=== PATIENT | female | born 1940 | race Caucasian/White ===

== ENCOUNTER → 2016-12-18 | Outpatient (CLI) | payer OTHER | LOC: GIMAGING 15:18 | PROVIDERS: ATTEND Nurse Practitioner | DX: I51.7 Cardiomegaly (principal); Q67.6 Pectus excavatum; J40 Bronchitis, not specified as acute or chronic | CPT/HCPCS: 71020-PO ==

== ENCOUNTER 2016-12-20 18:59 | Inpatient (IN) | payer OTHER ==
--- NOTE | 2016-12-20 19:39 | CPEKG ---
Heart Rate: 81 RR Interval: 741 P-R Interval: 196 QRSD Interval: 90 QT Interval: 392 QTC Interval: 455 P [place]: 82 QRS [place]: 13 T Wave [place]: 59 EKG Severity - ABNORMAL ECG - EKG Impression: SINUS RHYTHM EKG Impression: BIATRIAL ABNORMALITIES EKG Impression: NONSPECIFIC REPOL ABNORMALITY, LATERAL LEADS Electronically Signed By: Nina Ayala 20-Dec-2016 20:47:30
--- NOTE | 2016-12-20 19:40 | EDPHY ---
H & P Time Seen by Provider: 12/20/16 19:24 HPI/ROS: CHIEF COMPLAINT: Cough, lightheaded. HISTORY OF PRESENT ILLNESS: This patient is a 76 year old female arriving with her family complaining off cough and lightheadedness onset five days ago. Onset of nasal congestion and cough 5 days ago while on a cruise. 2 days ago, she went to urgent care. Chest x -ray was reportedly negative for pneumonia. She was given a prescription for zithromax and has taken 3 doses. This morning felt okay but by the afternoon she developed increased cough, exhaustion, lack of appetite, and lightheadedness. Associated with shortness of breath at rest and with exertion. Unable to do her usual activities today because of SOB and fatigue. Her at bedside notes she seems to be breathing more rapidly than usual. She denies fever, chest pain, or other associated symptoms. REVIEW OF SYSTEMS: A 10 point review of systems was performed and is negative with the exception of the elements mentioned in the history of present illness. Past Medical/Surgical History: Cardiac amyloidosis, Hypertension, High cholesterol Social History: and daughter at bedside. Originally from [place]. . Smoking Status: Never smoked Physical Exam: General Appearance: Alert, pleasant, non-toxic appearing Eyes: Pupils equal and round, no conjunctival pallor or injection ENT, Mouth: Mucous membranes moist Neck: Normal inspection Respiratory: increased respiratory rate, diffuse expiratory rhonchi Cardiovascular: Regular rate and rhythm. 2/6 systolic murmur Gastrointestinal: Abdomen is soft and non-tender Neurological: A&O, nonfocal exam Skin: Warm and dry, no rash Extremities: Nontender, no pedal edema Psychiatric: Mood and affect normal Constitutional: Initial Vital Signs Temperature (C) 37.2 C 12/20/16 19:09 Heart Rate 95 12/20/16 19:09 Respiratory Rate 20 12/20/16 19:09 Blood Pressure 114/79 12/20/16 19:09 O2 Sat (%) 95 12/20/16 19:09 O2 Delivery Mode Room Air O2 (L/minute) 2 Allergies/Adverse Reactions: Corticosteroids (Glucocorticoids) Allergy (Verified 12/20/16 21:35) epinephrine Allergy (Verified 12/20/16 21:34) Penicillins Allergy (Verified 12/20/16 21:34) Home Medications: Medication Instructions Recorded Ascorbic Acid [Vitamin C 500 mg 500 mg PO DAILY 12/20/16 (*)] Herbals/Supplements -Info Only 1 ea PO DAILY 12/20/16 Metoprolol Tartrate [Lopressor 25 12.5 mg PO BID 12/20/16 mg (*)] Multivitamins [Multivitamin (*)] 1 each PO DAILY 12/20/16 [place]-3 Fatty Acids [Fish Oil 1000 1,000 mg PO DAILY 12/20/16 mg (*)] Simvastatin 10 mg PO HS 12/20/16 Spironolactone [Aldactone 25 MG 12.5 mg PO DAILY 12/20/16 (*)] levOFLOXACIN [levAQUIN (*)] 750 mg PO DAILY 5 Days 12/22/16 Medical Decision Making - Diagnostics EKG Interpretation: EKG interpreted by me reveals normal sinus rhythm, rate 81, no ST or T segment changes. Impression: normal EKG Imaging Results: Chest x-ray independently reviewed by me reveals a right middle lobe infiltrate. Imaging: I viewed and interpreted images myself ED Course/Re-evaluation: This patient presents with worsening cough and shortness of breath, after being diagnosed with acute bronchitis. She has had a 3 day course of Zithromax already. Oxygen saturation 89% on room air. Diffuse expiratory rhonchi on exam. Plan for DuoNeb, chest x-ray, labs. Chest x-ray shows right lower lobe pneumonia. She does not meet SIRS criteria. Blood cultures were drawn and Levaquin 750 mg IV given. Feels better after duoneb and O2 2 liters by NC. 20:31 consulted with hospitalist service. Dr. Zimmer accepts admission for pneumonia. Differential Diagnosis: Differential diagnosis includes though it is not limited to pneumonia, pneumothorax, pulmonary embolism, aortic dissection, pericarditis, acute coronary syndrome. - Data Points Laboratory Results: Laboratory Results 12/20/16 20:25 12/20/16 20:25 Medications Given: Discontinued Medications Albuterol/Ipratropium (Duoneb) 3 ml IH EDNOW ONE Stop: 12/20/16 19:50 Last Admin: 12/20/16 20:48 Dose: 3 ml Ascorbic Acid (Vitamin C) 500 mg PO DAILY [facility] Stop: 06/19/17 08:59 Last Admin: 12/22/16 08:32 Dose: 500 mg Enoxaparin Sodium (Lovenox) 40 mg SC DAILY [facility] Stop: 06/19/17 08:59 Last Admin: 12/22/16 08:20 Dose: 40 mg Guaifenesin (Mucinex) 1,200 mg PO BID [facility] Stop: 06/18/17 22:29 Last Admin: 12/22/16 08:32 Dose: 1,200 mg Levofloxacin/Dextrose (Levaquin 750 Mg (Premix)) 150 mls @ 100 mls/hr IV EDNOW ONE PRN Reason: Protocol Stop: 12/20/16 21:55 Last Admin: 12/20/16 20:47 Dose: 150 mls Levofloxacin/Dextrose (Levaquin 750 Mg (Premix)) 150 mls @ 100 mls/hr IV DAILY [facility] PRN Reason: Protocol Stop: 01/20/17 08:59 Last Admin: 12/22/16 09:38 Dose: 150 mls Levalbuterol (Xopenex 0.31mg Neb) 0.31 mg IH Q8HRS [facility] Stop: 06/19/17 05:59 Last Admin: 12/21/16 14:41 Dose: Not Given Levalbuterol (Xopenex 1.25mg Neb) 1.25 mg IH Q8HRS [facility] Stop: 06/19/17 14:29 Last Admin: 12/22/16 05:14 Dose: 1.25 mg Metoprolol Tartrate (Lopressor) 12.5 mg PO BID [facility] Stop: 06/19/17 08:59 Last Admin: 12/22/16 12:27 Dose: Not Given Multivitamins (Tab-A-Farshad) 1 each PO DAILY [facility] Stop: 06/19/17 08:59 Last Admin: 12/22/16 08:32 Dose: 1 each Prcns-7-Hgey Ethyl Esters (Fish Oil) 1,000 mg PO DAILY [facility] Stop: 06/19/17 08:59 Last Admin: 12/22/16 08:31 Dose: 1,000 mg Pravastatin Sodium (Pravachol) 20 mg PO HS [facility] Stop: 06/19/17 08:59 Last Admin: 12/21/16 11:55 Dose: Not Given Pravastatin Sodium (Pravachol) 20 mg PO HS [facility] Stop: 06/19/17 20:59 Last Admin: 12/21/16 20:08 Dose: 20 mg Spironolactone (Aldactone) 12.5 mg PO DAILY [facility] Stop: 06/19/17 08:59 Last Admin: 12/22/16 08:31 Dose: 12.5 mg Departure - Departure Disposition: [facility] Inpatient Acute Clinical Impression: Pneumonia Qualifiers: Pneumonia type: due to unspecified organism Laterality: right Lung location: lower lobe of lung Qualified Code(s): J18.1 - Lobar pneumonia, unspecified organism Condition: Fair Report Scribed for: Nina Ayala Report Scribed by: Alana Sales Date of Report: 12/20/16 Time of Report: 19:40 Physician Review and Approval Statement: 12/20/16 19:40 Portions of this note were transcribed by a medical records director. I personally performed a history, physical exam, medical decision making, and confirmed accuracy of information the transcribed note.
[2016-12-20] MEDS ORDERED: IPRATROPIUM/ALBUTEROL 3 ML DEYVIAL IH ONE (19:49)
[2016-12-20 20:49] LABS: % IMMATURE GRANULYOCYTES 0.3 % (0.0-1.1); ABSOLUTE IMMATURE GRANULOCYTES 0.03 10^3/uL (0.00-0.10); ADD DIFF? NO; ADD MORPH? NO; ADD SCAN? NO; ATYPICAL LYMPHOCYTE FLAG 20 (0-99); FRAGMENT RBC FLAG 0 (0-99); HEMATOCRIT 43.4 % (38.0-47.0); HEMOGLOBIN 15.4 g/dL (12.6-16.3); LEFT SHIFT FLG 0 (0-99); LIPEMIA HEMOLYSIS FLAG 90 (0-99); MEAN CELL HEMOGLOBIN 30.9 pg (27.9-34.1); MEAN CELL HEMOGLOBIN CONCENTR. 35.5 g/dL (32.4-36.7); MEAN CELL VOLUME 87.1 fL (81.5-99.8); MEAN PLATELET VOLUME 10.6 fL (8.7-11.7); PLATELET CLUMPS FLAG 0 (0-99); PLATELET COUNT 172 10^3/uL (150-400); RED BLOOD CELL COUNT 4.98 10^6/uL (4.18-5.33); RED CELL DISTRIBUTION WIDTH 11.9 % (11.5-15.2)
[2016-12-20 20:58] LABS: ANION GAP 10 mEq/L (8-16); CALCIUM 9.6 mg/dL (8.5-10.4); CARBON DIOXIDE 21 mEq/l (22-31); CHLORIDE 98 mEq/L (97-110); CREATININE 0.8 mg/dL (0.6-1.0); GLOMERULAR FILTRATION RATE > 60; GLUCOSE 142 mg/dL (70-100); POTASSIUM 4.3 mEq/L (3.5-5.2); SODIUM 129 mEq/L (134-144)
[2016-12-20] MEDS ORDERED: ONDANSETRON 4 MG/2 ML VIAL IVP PRN (22:25)
[2016-12-20] MEDS ORDERED: ONDANSETRON DISINTEGRATING 4 MG TAB PO PRN (22:25)
[2016-12-20] MEDS ORDERED: ACETAMINOPHEN 325 MG TAB PO PRN (22:25)
--- NOTE | 2016-12-20 22:59 | GHP ---
[f rep st] HISTORY AND PHYSICAL DATE OF ADMISSION: 12/20/2016 CHIEF COMPLAINT: Shortness of breath. HISTORY OF PRESENT ILLNESS: A 76-year-old female with a history of cardiac amyloidosis who presents with complaints of progressive cough and shortness of breath over the course of the last 72 hours. Of note, the patient was recently on an extended cruise. She returned [place] the [place] approximately a week ago, was seen at the [facility] for her yearly evaluation of her cardia c amyloidosis and then came to [place] to visit. Since she has been traveling to [place], has not ed a productive cough of discolored sputum and shortness of breath. She was evaluated in the emerge ncy department on December 18, provided a Z-Wali for which she took 3 doses and noted only progression on her symptoms, therefore re-presented to the emergency department today. In the ED she is feeling lightheaded, is endorsing subjective fevers and chills. Denies vision changes. Denies dysphagia. Reports shortness of breath. Reports cough that is productive of brown discolored sputum that was blood tinged this morning. Denies any diarrhea. Denies any changes in her bowel habits. Denies an y blood in her stools. Denies dysuria or hematuria. Denies lower extremity edema. Denies any numb ness, tingling or myalgias or arthralgias. PAST MEDICAL HISTORY: 1. Cardiac amyloidosis. 2. Obstructive sleep apnea. She uses CPAP at home. 3. Hyperlipidemia. 4. Hypertension. SOCIAL HISTORY: Negative for tobacco, alcohol or illicit drugs. FAMILY HISTORY: Negative for cardiac amyloidosis. ADVANCED DIRECTIVES: Patient is full cor, full tube. Her would be her medical decision neftali er. REVIEW OF SYSTEMS: A 10-point review of systems is negative with the exception of that reported in the HPI. PHYSICAL EXAMINATION: VITAL SIGNS: Blood pressure 152/86, heart rate 85, respiratory rate 20, 95% on 2 L, 38.7. GENERAL: This is a healthy-appearing female in no acute distress. HEENT: Notable f or moist mucous membranes. Eye exam is negative for any icterus. CARDIAC: Regular rate and rhythm . A systolic murmur is best auscultated at the left upper sternal border. PULMONARY: She has scat tered rhonchi as well as scattered wheezing in both lung rgeer, more predominant on the right than the left. GASTROINTESTINAL: Positive bowel sounds. ABDOMEN: Soft and nontender to palpation. MU SCULOSKELETAL: Negative for any lower extremity edema. SKIN: Exam is negative for any rashes. TEMO ROLOGIC: She is alert and oriented x3. PSYCHIATRIC: She is pleasant and cooperative on interview and examination. LABORATORY DATA: White count is 12, hematocrit 43.4, platelets of 172. Sodium 129. Lactic acid 1. 6, creatinine 0.8, blood glucose of 142, anion gap 10. Chest x-ray, which I personally reviewed and interpreted, shows an infiltrate in the right middle lobe, new from imaging on 12/18/2016. ASSESSMENT AND PLAN: This is a 76-year-old female presenting with shortness of breath and cough. 1. Sepsis. The patient is presenting with fever, leukocytosis, presumed source pulmonary. She has been recently traveling. Will empirically treat for community-acquired pneumonia. Send sputum cul tures. Blood cultures have been sent from the emergency department. We will check Legionella. Low er suspicion for a viral pathogen based on her time course and symptoms, will not send a respiratory viral panel at this time. She has received 3 doses of azithromycin, will switch azithromycin ceftr iaxone to levofloxacin single agent IV 750 daily and follow her blood cultures obtained in the emerg ency department. 2. Acute hypoxic respiratory failure secondary to community-acquired pneumonia. The patient is whe ezing on examination. Will add a long-acting beta agonist. Secondary to her cardiac amyloidosis as well as Mucinex in addition to the antibiotics outlined above. 3. Cardiac amyloidosis. Will continue patient's outpatient medications without alteration. 4. Hyponatremia, presumed hypovolemic in nature. The patient received normal saline resuscitation in the emergency department. We can recheck in the morning. 5. Hyperglycemia. This is not a known diagnosis for this patient. Will send a hemoglobin A1c to e valuate prophylaxis with Lovenox. DIET: Regular. DISPOSITION: I expect greater than 2 midnights as the patient has medical comorbidities presenting with sepsis and pneumonia. I discussed the case with the emergency room physician. Patient will be triaged to the medical-surgical floor for monitoring and care. /[id number]/MODL
[2016-12-20] MEDS: guaiFENesin 600 MG TAB.ER PO SCH (23:00)
[2016-12-21 05:11] LABS: % IMMATURE GRANULYOCYTES 0.3 % (0.0-1.1); ABSOLUTE IMMATURE GRANULOCYTES 0.03 10^3/uL (0.00-0.10); ADD DIFF? NO; ADD MORPH? NO; ADD SCAN? NO; ATYPICAL LYMPHOCYTE FLAG 30 (0-99); FRAGMENT RBC FLAG 0 (0-99); HEMATOCRIT 39.6 % (38.0-47.0); HEMOGLOBIN 14.2 g/dL (12.6-16.3); LEFT SHIFT FLG 10 (0-99); LIPEMIA HEMOLYSIS FLAG 90 (0-99); MEAN CELL HEMOGLOBIN 31.3 pg (27.9-34.1); MEAN CELL HEMOGLOBIN CONCENTR. 35.9 g/dL (32.4-36.7); MEAN CELL VOLUME 87.4 fL (81.5-99.8); PLATELET CLUMPS FLAG 20 (0-99); PLATELET COUNT 145 10^3/uL (150-400); RED BLOOD CELL COUNT 4.53 10^6/uL (4.18-5.33); RED CELL DISTRIBUTION WIDTH 11.8 % (11.5-15.2)
[2016-12-21] MEDS: LEVALBUTEROL 0.31 MG/3 ML DEYVIAL IH SCH ×2 (05:20→14:41)
[2016-12-21 06:06] LABS: ANION GAP 12 mEq/L (8-16); CALCIUM 9.2 mg/dL (8.5-10.4); CARBON DIOXIDE 20 mEq/l (22-31); CHLORIDE 97 mEq/L (97-110); CREATININE 0.8 mg/dL (0.6-1.0); GLOMERULAR FILTRATION RATE > 60; GLUCOSE 114 mg/dL (70-100); POTASSIUM 4.2 mEq/L (3.5-5.2); SODIUM 129 mEq/L (134-144)
[2016-12-21] MEDS ORDERED: Herbals/Supplements -Info Only PO SCH (09:00)
[2016-12-21] MEDS ORDERED: PRAVASTATIN SODIUM 20 MG TAB PO SCH ×2 (09:00→21:00)
[2016-12-21] MEDS: OMEGA-3 FATTY ACIDS 1,000 MG CAP PO SCH (09:59)
[2016-12-21] MEDS: ASCORBIC ACID 500 MG TAB PO SCH (09:59)
[2016-12-21] MEDS: guaiFENesin 600 MG TAB.ER PO SCH ×2 (09:59→20:11)
[2016-12-21] MEDS: METOPROLOL TARTRATE 25 MG TAB PO SCH ×2 (09:59→20:08)
[2016-12-21] MEDS: MULTIVITAMINS 1 EACH TAB PO SCH (09:59)
[2016-12-21] MEDS: ENOXAPARIN 40 MG/0.4 ML SYR SC SCH (10:04)
[2016-12-21] MEDS: SPIRONOLACTONE 25 MG TAB PO SCH (11:31)
--- NOTE | 2016-12-21 11:53 | HOSPPROG ---
Hospitalist Progress Note Assessment/Plan: 76 yo F with PMH of cardiac amyloidosis currently visiting from out of town pw cough/sob/fever found to be 2/2 CAP # CAP: on personal review of CXR noted to have new RML infiltrate on cxr. Started on levofloxacin with significant improvement overnight. Had respiratory viral PCR panel sent w/human metapneumovirus noted but suspect bacterial superinfection present as well given consolidation and overall clinical picture- -suspect atypical organisms. # sepsis: meeting SIRS criteria with fever, leukocytosis but no e/o end organ dysfunction and no HD instability # acute hypoxic respiratory failure: presenting with O2 of 89% on RA requiring 2L to maintain o2 sats >90%, have been able to wean to RA today # hyponatremia: has been persistent despite IVF overnight, baseline unknown and given hx of amyloid certainly at risk for SIADH. Will check urine na/urine osms and continue to trend. # cardiac amyloidosis: followed by the [facility], has been stable per her report # hyperglycemia: will check A1c # dispo: IP status, will need > 48 hours for eval/mgmt of above Patient new to my care. Old records reviewed and summarized as above. Subjective: no significant overnight events Objective: Vital Signs Temp Pulse Resp BP Pulse Ox 36.7 C 61 18 123/65 H 95 12/21/16 11:11 12/21/16 11:11 12/21/16 11:11 12/21/16 11:11 12/21/16 11:11 Microbiology 12/20/16 21:10 Respiratory Panel (PCR) - Final Nasal, Sinus - Swab Human Metapneumovirus Laboratory Results 12/21/16 04:38 12/21/16 04:38 12/20/16 12/21/16 12/22/16 05:59 05:59 05:59 Intake Total 250 Output Total 200 Balance 50 awake alert anicteric op clear rrr no mrg right sided rhonchi and scattered wheeze soft nt nd no cce warm dry well perfused oriented appropriate ICD10 Worksheet Patient Problems: Problems Problem Status Onset Pneumonia Acute
[2016-12-21 14:14] LABS: HEMOGLOBIN A1C 5.4 % (4.0-6.0)
[2016-12-21] MEDS ORDERED: LEVALBUTEROL 1.25 MG/3 ML DEYVIAL IH SCH (14:30)
[2016-12-21] MEDS: LEVALBUTEROL 1.25 MG/3 ML DEYVIAL IH SCH ×2 (14:49→21:34)
[2016-12-22] MEDS: LEVALBUTEROL 1.25 MG/3 ML DEYVIAL IH SCH (05:14)
[2016-12-22 05:24] LABS: ANION GAP 10 mEq/L (8-16); CALCIUM 9.2 mg/dL (8.5-10.4); CARBON DIOXIDE 21 mEq/l (22-31); CHLORIDE 97 mEq/L (97-110); CREATININE 0.9 mg/dL (0.6-1.0); GLOMERULAR FILTRATION RATE > 60; GLUCOSE 94 mg/dL (70-100); POTASSIUM 4.6 mEq/L (3.5-5.2); SODIUM 128 mEq/L (134-144)
[2016-12-22] MEDS: ENOXAPARIN 40 MG/0.4 ML SYR SC SCH (08:20)
[2016-12-22] MEDS: OMEGA-3 FATTY ACIDS 1,000 MG CAP PO SCH (08:31)
[2016-12-22] MEDS: SPIRONOLACTONE 25 MG TAB PO SCH (08:31)
[2016-12-22] MEDS: MULTIVITAMINS 1 EACH TAB PO SCH (08:32)
[2016-12-22] MEDS: ASCORBIC ACID 500 MG TAB PO SCH (08:32)
[2016-12-22] MEDS: guaiFENesin 600 MG TAB.ER PO SCH (08:32)
[2016-12-22 12:06] VITALS: BP 134/67; PULSE 80; RESP 16; TEMP 98.3; O2SAT 93
--- NOTE | 2016-12-22 12:06 | HOSPPROG ---
Hospitalist Progress Note Assessment/Plan: 76 yo F w cardiac amyloid here w cap on ra siadh home today see dc summary > 30 minutes Subjective: notes tremulousness w nebs. sodium 137 last week at [facility] [place] Objective: Vital Signs Temp Pulse Resp BP Pulse Ox 36.7 C 86 20 122/54 H 95 12/22/16 07:56 12/22/16 07:56 12/22/16 07:56 12/22/16 07:56 12/22/16 05:16 Microbiology 12/20/16 21:10 Respiratory Panel (PCR) - Final Nasal, Sinus - Swab Human Metapneumovirus Laboratory Results 12/21/16 04:38 12/22/16 04:49 12/21/16 12/22/16 12/23/16 05:59 05:59 05:59 Intake Total 250 650 Output Total 200 Balance 50 650 - Physical Exam Constitutional: no apparent distress, appears nourished Eyes: PERRL, anicteric sclera Ears, Nose, Mouth, Throat: moist mucous membranes, hearing normal Cardiovascular: regular rate and rhythym, no murmur, rub, or gallop Respiratory: no respiratory distress, no rales or rhonchi, other (crackles R mid lung) Gastrointestinal: normoactive bowel sounds, soft, non-tender abdomen Genitourinary: no bladder fullness, No wynn in urethra Skin: warm, normal color Musculoskeletal: full muscle strength, no muscle tenderness Neurologic: AAOx3 Psychiatric: interacting appropriately ICD10 Worksheet Patient Problems: Problems Problem Status Onset Pneumonia Acute
[2016-12-22] MEDS: METOPROLOL TARTRATE 25 MG TAB PO SCH (12:27)
--- NOTE | 2016-12-22 13:37 | GDS ---
[f rep st] DISCHARGE SUMMARY DISCHARGE DIAGNOSES: 1. Community-acquired pneumonia. 2. 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 3. Cardiac amyloid without heart failure symptoms. Please see admission history and physical by Dr. Candelaria Zimmer. The patient presented with breathle ssness and cough. She had a chest x-ray that had progressed from her one the day prior [facility] that showed evidence of right middle lobe pneumonia. She had no signs or symptoms consistent wit h aspiration. She was treated with levofloxacin with improvement in her symptoms. She had a sodium of 128, she was euvolemic, her were 222. This is consistent with SIADH. She did not pate ve heart failure signs or symptoms while here. She was discharged home to complete a 7-day course o f levofloxacin. /[id number]/MODL
--- NOTE | 2016-12-26 14:16 | PQFORM ---
PHYSICIAN QUERY FORM Needs Your Response This query form is being sent to you to assure this patient record is coded properly. Please respond to the question below: SANITATION DIRECTOR QUESTION: Dr. Chapin, The ED record dated 20 December 2016 does not include the diagnosis of sepsis, nor does the discharge summary 22 December 2016. The H&P dated 20 December has the first listed diagnosis as sepsis, with that diagnosis also included in the progress note dated 21 December. Do you agree with the impression on the H&P and progress note that this patient has sepsis? _X___Yes ____ No ____ Other ____ Clinically Undetermined Many thanks, ALLIE Marie [facility] [place] department W: INSTRUCTIONS FOR RESPONSE: Answer question by clicking on the "Edit Document" button. Move cursor to area below the stars. When complete, hit "Save." Click on the "Sign" button, then click "Sign" again. Type in your PIN and hit "Enter." MTDD
== END 2016-12-22 13:16 | disposition home or self-care (01) | DRG 871 ==
LOC: F3E 21:32
PROVIDERS: ADMIT Hospitalist; ATTEND Internal Medicine
DX: A41.9 Sepsis, unspecified organism (principal); J18.0 Bronchopneumonia, unspecified organism; J96.01 Acute respiratory failure with hypoxia; E22.2 Syndrome of inappropriate secretion of antidiuretic hormone; E85.4 Organ-limited amyloidosis; I10 Essential (primary) hypertension; E78.00 Pure hypercholesterolemia, unspecified; G47.33 Obstructive sleep apnea (adult) (pediatric)
CPT/HCPCS: 71020-PO; 87449-90; 96365; J1650; J1956